=== PATIENT | male | born 1995 | race Two or more races ===

== ENCOUNTER 2024-12-02 22:42 | Emergency (ER) | payer SELFPAY ==
[2024-12-02] MEDS: Ketorolac 60 MG/2 ML SDV IM ONE (23:07)
== END 2024-12-02 23:54 | disposition home or self-care (01) ==
LOC: MW.ED 22:42
DX: S90.31XA Contusion of right foot, initial encounter (principal); Z79.899 Other long term (current) drug therapy; W20.8XXA Other cause of strike by thrown, projected or falling object, initial encounter; Y93.89 Activity, other specified
CPT/HCPCS: 73610; 73620; 96372; 99283; J1885

== ENCOUNTER 2025-04-03 21:25 | Emergency (ER) | payer SELFPAY | END 2025-04-03 22:02 | disposition home or self-care (01) | LOC: MW.ED 21:25 | DX: A60.00 Herpesviral infection of urogenital system, unspecified (principal); R03.0 Elevated blood-pressure reading, without diagnosis of hypertension | CPT/HCPCS: 99283; A9270; 99284 ==